=== PATIENT | male | born 1960 | race Caucasian/White ===

== ENCOUNTER 2024-10-26 11:55 | Emergency (ER) | payer OTHER, MEDICARE ==
[~2024-10-26] VITALS: Ht 172.7 cm; Wt 96.6 kg
[2024-10-26] MEDS ORDERED: ROSUVASTATIN CA10 MG PO (12:24)
[2024-10-26] MEDS ORDERED: LISINOPRIL10 MG PO (12:24)
[2024-10-26] MEDS ORDERED: METOPROLOL TART75 MG PO (12:24)
[2024-10-26 13:30] LABS: EOSINOPHILS 3.2 % (0-6); HEMATOCRIT 43.2 % (35.0-50.0); HEMOGLOBIN 15.1 g/dL (12.0-18.0); LYMPHOCYTES 19.7 % (24-44); MCH 33.1 (27-36); MCHC 34.9 g/dl (30-36); MCV 94.8 fl (81-99); MONOCYTES 13.1 % (0-12); PLATELET COUNT 152 K/uL (140-440); RBC 4.56 M/ul (4.3-5.7)
[2024-10-26] MEDS ORDERED: ondansetron HCL 4 MG/2 ML VIAL IV PRN (13:30)
[2024-10-26 13:42] LABS: ALBUMIN 3.6 g/dL (3.4-5.0); ALBUMIN/GLOBULIN RATIO 0.88 (1.1-2.4); ANION GAP 11.9 (7-21); BILIRUBIN, TOTAL 0.8 ng/dL (0.2-1.0); CALCIUM 8.6 mg/dL (8.5-10.1); CREATININE, SERUM 0.95 mg/dL (0.70-1.30); POTASSIUM 3.9 mmol/L (3.5-5.1); PROTEIN, TOTAL 7.7 g/dL (6.4-8.2)
[2024-10-26] MEDS ORDERED: KETOROLAC TROMETHAMINE 30 MG/ML VIAL IV ONE (14:00)
[2024-10-26] MEDS ORDERED: HYDROmorphone HCL 1 MG/ML SYR IV PRN (14:00)
[2024-10-26 14:29] LABS: BILIRUBIN, URINE NEGATIVE (negative); BLOOD/HGB, URINE NEGATIVE (Negative); KETONE, URINE NEGATIVE (Negative); LEUK ESTERASE, URINE NEGATIVE (negative); NITRITE, URINE NEGATIVE (negative); PH, URINE 5.5 (5-7)
[2024-10-26] MEDS ORDERED: PERCOCET 5-3251 EACH PO (15:04)
[2024-10-26 15:34] VITALS: BP 140/78
== END 2024-10-26 15:15 | disposition home or self-care (01) ==
LOC: ED 11:55
PROVIDERS: Emergency Medicine
DX: S29.9XXA Unspecified injury of thorax, initial encounter (principal); I10 Essential (primary) hypertension; Z88.6 Allergy status to analgesic agent; Z79.899 Other long term (current) drug therapy; W01.0XXA Fall on same level from slipping, tripping and stumbling without subsequent striking against object, initial encounter
CPT/HCPCS: 36415; 71046; 80053; 81003; 85025; 96374; 96375; 99284-25; J1171; J1885